=== PATIENT | female | born 1955 | race Caucasian/White ===

== ENCOUNTER 2016-10-06 11:21 | Inpatient (IN) | payer OTHER ==
[~2016-10-06] VITALS: Ht 162.6 cm; Wt 107.3 kg
[2016-10-06] MEDS ORDERED: BACLOFEN20 MG PO (12:06)
[2016-10-06] MEDS ORDERED: TOUJEO300 U/ML SC (12:06)
[2016-10-06] MEDS ORDERED: DIOVAN160 MG PO (12:06)
[2016-10-06] MEDS ORDERED: JANUVIA100 M1 PO (12:06)
[2016-10-06] MEDS ORDERED: EFFEXOR-XR150 MG PO (12:06)
[2016-10-06] MEDS ORDERED: METFORMIN HCL1000 MG PO (12:07)
[2016-10-06] MEDS ORDERED: LYRICA150 M1 PO (12:07)
[2016-10-06] MEDS ORDERED: LIPITOR80 MG PO (12:07)
[2016-10-06] MEDS ORDERED: K10 PO (12:07)
[2016-10-06] MEDS ORDERED: LEVOXYL0.1 MG PO (12:08)
[2016-10-06] MEDS ORDERED: LASIX40 MG PO (12:08)
[2016-10-06] MEDS ORDERED: PROTONIX40 MG PO (12:08)
[2016-10-06] MEDS ORDERED: APAP/OXYCODONE1 TA3 PO (12:08)
[2016-10-06 12:14] LABS: BASOPHIL % 1.2 % (0-2); PLATELET COUNT 273 x10^3mcL (130-400); RED CELL DISTRIBUTION WIDTH 13.8 % (11.5-14.5)
[2016-10-06 12:16] LABS: CALCIUM 8.9 mg/dL (8.5-10.1); CREATININE SERUM 1.5 mg/dL (0.6-1.0); POTASSIUM SERUM 4.7 mmol/L (3.5-5.1)
[2016-10-06 12:21] LABS: BILIRUBIN TOTAL 0.3 mg/dL (0.20-1.00); TOTAL PROTEIN, SERUM 7.3 g/dL (6.4-8.2)
[2016-10-06 12:23] LABS: ALBUMIN 2.8 g/dL (3.4-5.0)
[2016-10-06 12:41] LABS: microscopic required? YES; urine erythrocyte 1+ (NEGATIVE)
[2016-10-06 14:36] VITALS: BP 106/56
[2016-10-06 15:18] LABS: FREE THYROXINE INDEX 3.5 ug/dL (1.4-4.5); T3 TOTAL 0.73 ng/mL; T4(THYROXINE) 9.1 ug/dL (4.7-13.3)
[2016-10-06 15:37] LABS: FREE T4 1.51 ng/dL (0.76-1.46)
[2016-10-06 17:34] VITALS: BP 128/54
[2016-10-06 19:30] LABS: AMPHETAMINE QUAL UR NONE DETECTED (NEG <=1000)
[2016-10-06 21:30] VITALS: BP 116/49
[2016-10-07 05:36] VITALS: BP 116/59
[2016-10-07 06:26] LABS: BASOPHIL % 0.5 % (0-2); PLATELET COUNT 237 x10^3mcL (130-400); RED BLOOD CELLS 3.44 M/mm3 (4.10-5.10); RED CELL DISTRIBUTION WIDTH 13.8 % (11.5-14.5)
[2016-10-07 06:28] LABS: CALCIUM 8.6 mg/dL (8.5-10.1); CARBON DIOXIDE 28.3 mmol/L (21-32); CREATININE SERUM 1.1 mg/dL (0.6-1.0); MAGNESIUM 1.4 mg/dL (1.8-2.4); PHOSPHOROUS 3.7 mg/dL (2.5-4.9); POTASSIUM SERUM 4.4 mmol/L (3.5-5.1)
[2016-10-07 06:31] LABS: CHOLESTEROL/HDL RATIO 1.7
[2016-10-07 06:40] LABS: IRON 27 ug/dL (50-170); TOTAL IRON BINDING CAPACITY 211 ug/dL (250-450)
[2016-10-07 09:35] VITALS: BP 108/54
[2016-10-07 15:34] VITALS: Ht 162.6 cm; Wt 107.3 kg
[2016-10-07 17:15] VITALS: BP 128/53
[2016-10-07 22:39] VITALS: BP 120/46
[2016-10-08 06:28] LABS: BASOPHIL % 0.3 % (0-2); PLATELET COUNT 243 x10^3mcL (130-400); RED CELL DISTRIBUTION WIDTH 13.9 % (11.5-14.5)
[2016-10-08 06:38] LABS: CALCIUM 8.5 mg/dL (8.5-10.1); MAGNESIUM 1.6 mg/dL (1.8-2.4); POTASSIUM SERUM 4.7 mmol/L (3.5-5.1)
[2016-10-08 07:06] VITALS: BP 123/65
[2016-10-08 09:36] VITALS: BP 131/44
[2016-10-08 15:36] VITALS: BP 113/39; BP 131/44
[2016-10-08 17:30] VITALS: BP 117/66
[2016-10-08 22:08] VITALS: BP 137/41
[2016-10-09 07:50] VITALS: BP 127/55
[2016-10-09 08:55] LABS: CALCIUM 8.8 mg/dL (8.5-10.1); CARBON DIOXIDE 25.2 mmol/L (21-32); MAGNESIUM 1.4 mg/dL (1.8-2.4); POTASSIUM SERUM 4.5 mmol/L (3.5-5.1)
[2016-10-09 09:00] LABS: BASOPHIL % 0.5 % (0-2); PLATELET COUNT 244 x10^3mcL (130-400); RED CELL DISTRIBUTION WIDTH 13.9 % (11.5-14.5)
[2016-10-09 18:08] VITALS: BP 121/55
[2016-10-09 21:20] VITALS: BP 114/44
[2016-10-10 05:53] VITALS: BP 138/56
[2016-10-10 07:07] LABS: BASOPHIL % 0.3 % (0-2); PLATELET COUNT 279 x10^3mcL (130-400); RED CELL DISTRIBUTION WIDTH 13.9 % (11.5-14.5)
[2016-10-10 07:20] LABS: CALCIUM 8.4 mg/dL (8.5-10.1); CARBON DIOXIDE 28.5 mmol/L (21-32); CREATININE SERUM 1.1 mg/dL (0.6-1.0); MAGNESIUM 1.6 mg/dL (1.8-2.4); POTASSIUM SERUM 4.3 mmol/L (3.5-5.1)
[2016-10-10] MEDS ORDERED: NITROFURANTOIN100 MG PO (10:18)
[2016-10-10 10:41] VITALS: BP 113/39
[2016-10-10] MEDS ORDERED: TEST STRIPS1 EACH MC (11:40)
== END 2016-10-10 15:55 | disposition home health service (06) | DRG 503 ==
LOC: ED 11:21 → MU 13:15 → DU 13:15 → MU 14:21 → DU 21:25 → MU 10-07 10:42
PROVIDERS: Emergency Medicine; Podiatrist Foot & Ankle Surgery; ADMIT Family Medicine
PROC: 0Y6Q0Z3 Detachment at Left 1st Toe, Low, Open Approach (ICD-10-PCS; principal; 2016-10-07 07:30)
DX: M86.8X7 Other osteomyelitis, ankle and foot (principal); N17.0 Acute kidney failure with tubular necrosis; E43 Unspecified severe protein-calorie malnutrition; L03.116 Cellulitis of left lower limb; L03.115 Cellulitis of right lower limb; N39.0 Urinary tract infection, site not specified; Z68.41 Body mass index [BMI] 40.0-44.9, adult; D68.69 Other thrombophilia; E87.2 Acidosis; E11.621 Type 2 diabetes mellitus with foot ulcer; E11.51 Type 2 diabetes mellitus with diabetic peripheral angiopathy without gangrene; E11.65 Type 2 diabetes mellitus with hyperglycemia; E78.5 Hyperlipidemia, unspecified; E03.9 Hypothyroidism, unspecified; M79.7 Fibromyalgia; I10 Essential (primary) hypertension; K21.9 Gastro-esophageal reflux disease without esophagitis; F32.9 Major depressive disorder, single episode, unspecified; G89.29 Other chronic pain; Z79.4 Long term (current) use of insulin; D63.8 Anemia in other chronic diseases classified elsewhere; I36.1 Nonrheumatic tricuspid (valve) insufficiency; E83.42 Hypomagnesemia; E11.42 Type 2 diabetes mellitus with diabetic polyneuropathy; E66.01 Morbid (severe) obesity due to excess calories; M85.879 Other specified disorders of bone density and structure, unspecified ankle and foot; B96.20 Unspecified Escherichia coli [E. coli] as the cause of diseases classified elsewhere
CPT/HCPCS: 82962; 83880; 84439; 90715; 97110-GP; 97116-GP; 97530-GP; J0696; J1815; J1885; J1956; J2250; J2704; J3010; J3370; J3475; J3490; J7030; Q0092